=== PATIENT | female | born 1955 | race Two or more races ===

== ENCOUNTER 2021-05-07 12:30 | Inpatient (IN) | payer OTHER ==
[~2021-05-07] VITALS: Ht 162.6 cm; Wt 64.9 kg
[2021-05-07] MEDS ORDERED: ZESTRIL20 MG PO (15:17)
[2021-05-07] MEDS ORDERED: PRAMIPEXOLE DI0.5 MG PO (15:18)
[2021-05-09] MEDS ORDERED: HYDROCHLOROTHIA25 MG (11:56)
== END 2021-05-11 15:12 | disposition home or self-care (01) | DRG 740 ==
LOC: OB/GYN 05-09 05:35 → O/R 05-09 05:35 → SURH 05-09 07:00 → OB/GYN 05-09 11:56 → SURH 05-09 12:30 → OB/GYN 05-11 15:12
PROVIDERS: ADMIT Specialist; ATTEND Specialist
PROC: 0UT24ZZ Resection of Bilateral Ovaries, Percutaneous Endoscopic Approach (ICD-10-PCS; 2021-05-09)
PROC: 0UT74ZZ Resection of Bilateral Fallopian Tubes, Percutaneous Endoscopic Approach (ICD-10-PCS; 2021-05-09)
PROC: 07BC4ZZ Excision of Pelvis Lymphatic, Percutaneous Endoscopic Approach (ICD-10-PCS; 2021-05-09)
PROC: 0UT94ZZ Resection of Uterus, Percutaneous Endoscopic Approach (ICD-10-PCS; principal; 2021-05-09 07:00)
DX: C54.1 Malignant neoplasm of endometrium (principal); C77.5 Secondary and unspecified malignant neoplasm of intrapelvic lymph nodes; R59.9 Enlarged lymph nodes, unspecified; N95.0 Postmenopausal bleeding; I10 Essential (primary) hypertension